=== PATIENT | male | born 1980 | race Caucasian/White ===

== ENCOUNTER 2020-07-11 23:38 | Emergency (ER) | payer SELFPAY ==
[~2020-07-11] VITALS: Ht 185.4 cm; Wt 90.7 kg
[2020-07-11 23:51] VITALS: BP_SYST 126
[2020-07-12] MEDS ORDERED: ONDANSETRON HCL 4 MG/2 ML VIAL IVP ONE ×2 (00:30→00:45)
[2020-07-12] MEDS ORDERED: NACL 0.9% 1,000 ML IV ONE ×2 (00:30→02:15)
[2020-07-12 00:40] LABS: BASOPHILS # (AUTO) 0.1 K/uL (0.0-0.2); BASOPHILS % (AUTO) 0.5 % (0.0-2.0); EOSINOPHILS % (AUTO) 0.3 % (0.0-4.0); HEMOGLOBIN 14.1 g/dL (14.0-18.0); LYMPHOCYTES # (AUTO) 1.6 K/uL (1.0-5.5); LYMPHOCYTES % (AUTO) 12.5 % (20.5-51.5); MEAN CORPUSCULAR HEMOGLOBIN 28 pg (27-31); MEAN CORPUSCULAR HGB CONC 34 % (32-36); MEAN CORPUSCULAR VOLUME 85 fL (79.0-98.0); MONOCYTES # (AUTO) 0.8 K/uL (0.0-1.0); MONOCYTES % (AUTO) 5.9 % (1.7-9.3); NEUTROPHILS # (AUTO) 10.3 K/uL (1.8-7.7); NEUTROPHILS % (AUTO) 80.8 % (40.0-70.0); PLATELET COUNT (AUTO) 264 K/uL (130-430); RED BLOOD CELL COUNT(AUTO) 4.94 MIL/uL (4.2-6.2); WHITE BLOOD COUNT (AUTO) 12.7 K/uL (4.8-10.8)
[2020-07-12 00:54] LABS: ANION GAP 7 (5-15); CALCIUM 8.2 mg/dL (8.4-11.0); CHLORIDE 106 mmol/L (98-107); CREATININE 1.03 mg/dL (0.55-1.30); GLUCOSE 162 mg/dL (70-99); SODIUM SERUM 139 mmol/L (136-145); UREA NITROGEN, BLOOD 18 mg/dL (8-21)
[2020-07-12 01:03] LABS: ALANINE AMINOTRANSFERASE 61 U/L (12-78); ALBUMIN 3.6 g/dL (3.4-4.8); ASPARTATE AMINOTRANSFERASE 36 U/L (10-37); TOTAL BILIRUBIN 0.4 mg/dL (0.0-1.0)
[2020-07-12 01:05] LABS: ALCOHOL, BLOOD < 3 mg/dL (<10); GFR AFRICAN AMERICAN 104 mL/min (>90)
[2020-07-12] MEDS ORDERED: PROCHLORPERAZINE EDISYLATE 10 MG/2 ML VIAL IVP ONE (02:15)
[2020-07-12] MEDS ORDERED: KETOROLAC TROMETHAMINE 30 MG VIAL IVP ONE (02:15)
[2020-07-12 02:55] LABS: BARBITURATE, URINE NEGATIVE (NEG <=200); BENZODIAZEPINE, URINE NEGATIVE (NEG <=150); CANNABINOID, URINE POSITIVE (NEG <=50); COCAINE, URINE NEGATIVE (NEG <=150); METHAMPHETAMINES SCREEN,URINE NEGATIVE (NEG <=500); OPIATE, URINE NEGATIVE (NEG <=100); PHENCYCLIDINE SCREEN,URINE NEGATIVE (NEG <=25); UR TRICYCLIC ANTIDEPRESSANTS NEGATIVE (NEG <=300); URINE AMPHETAMINE NEGATIVE (NEG <=500); URINE METHADONE NEGATIVE (NEG <=200); URINE OXYCODONE SCREEN NEGATIVE (NEG <=100); URINE PROPOXYPHENE SCREEN NEGATIVE (NEG <=300)
[2020-07-12 03:33] VITALS: BP_SYST 126
== END 2020-07-12 03:33 | disposition home or self-care (01) ==
LOC: SED 23:38
DX: R11.2 Nausea with vomiting, unspecified (principal); I10 Essential (primary) hypertension
CPT/HCPCS: 36415; 70450; 80053; 80307; 84484; 85025; 93005; 96374; 96375; 99285; G0482; J0780; J1885; J7030; J2405